=== PATIENT | female | born 1990 | race African-American/Black ===

== ENCOUNTER 2016-09-21 10:58 | Emergency (ER) | payer OTHER ==
[~2016-09-21] VITALS: Ht 170.2 cm; Wt 77.0 kg
[~2016-09-21 10:58] MED LIST: ADVAIR HFA120 INHAL2 IH; AMBIEN PO; AMBIEN5 MG PO; AMOXICILLIN500 MG PO; ATROVENT 0.06%15 ML BOTH NARES; AUGMENTIN875 MG PO; CIPROFLOXACIN H10 ML LEFT EYE; COLACE100 MG PO; DEPO-PROVER150 MG/ML IM; FLAGYL500 MG PO; FLINTSTONES WIT18 MG PO; Feosol PO; GUMMIES CHILDR1 EACH PO; HEMOCYTE324 MG PO; IBUPROFEN800 MG PO; KEFLEX500 MG PO; MOBIC7.5 MG PO; MOTRIN800 MG PO; Motrin PO; NAPROSYN500 MG PO; NAPROXEN500 MG PO; NO MEDS; NOHOMEMEDS; NORCO 5/3251 TABLET PO; PERCOCET 5/31 TABLET PO; PRENATAL VITAM1 EAC3 PO; PROAIR HFA8.5 GM IH; PROMETHAZINE HC25 M1 PO; PROVENTIL,200 INHALA IH; TYLENOL WITH C1 EACH PO; Tylenol Regular Stre PO; ULTRAM50 MG PO; ZOFRAN ODT4 MG PO; no med; ~No Medications
[2016-09-21 11:02] VITALS: BP 132/92
[2016-09-21] MEDS ORDERED: ULTRAM50 MG PO (12:01)
[2016-09-21] MEDS ORDERED: TRAMADOL HCL E100 M1 PO (13:37)
[2016-09-21] MEDS ORDERED: NAPROSYN500 MG PO (13:37)
[2016-09-21] MEDS ORDERED: FLEXERIL10 MG PO (13:37)
== END 2016-09-21 13:45 | disposition home or self-care (01) ==
LOC: EME 10:58
DX: S86.912A Strain of unspecified muscle(s) and tendon(s) at lower leg level, left leg, initial encounter (principal); M17.12 Unilateral primary osteoarthritis, left knee; Z91.040 Latex allergy status; Z88.6 Allergy status to analgesic agent
CPT/HCPCS: 73564; 99281; 99284; J1885

== ENCOUNTER 2016-12-21 08:52 | Emergency (ER) | payer OTHER ==
[~2016-12-21] VITALS: Ht 170.2 cm; Wt 76.6 kg
[~2016-12-21 08:52] MED LIST changes: +FLEXERIL10 MG PO; +TRAMADOL HCL E100 M1 PO
[2016-12-21 09:46] LABS: ADD MIUA? YES; BILIRUBIN NEGATIVE; BLOOD NEGATIVE; COLOR YELLOW ((YELLOW)); GLUCOSE (STRIP) NEGATIVE; KETONES NEGATIVE; LEUKOCYTES TRACE; NITRITE NEGATIVE; PROTEIN (STRIP) 30; SPECIFIC GRAVITY 1.024 (1.000-1.030); UROBILINOGEN 0.2 MG/DL (0.2-1.0)
[2016-12-21 10:10] LABS: CHLORIDE 108 mEq/L (99-109); EOSINOPHIL (%) 5.2 % (0-5); EOSINOPHIL COUNT 0.2 K/uL (0-0.3); HEMATOCRIT 35.3 % (36.0-46.0); INSTRUMENT ABS NEUTROPHIL CT 1.3 K/uL; LYMPHOCYTE COUNT 1.6 K/uL (1.0-2.8); MCH 23.3 PG (29.0-34.0); MCV 68.7 FL (83-99); MEAN PLAT.VOLUME 11.8 uM^3 (9.5-12.4); MONOCYTE (%) 8.1 % (3-12); MONOCYTE COUNT 0.3 K/uL (0-0.8); NEUTROPHIL (%) 38.7 % (45-76); NEUTROPHIL COUNT 1.3 K/uL (1.8-6.4); PLATELET COUNT 262 K/uL (156-360); POTASSIUM 3.6 mEq/L (3.7-5.4); RBC DIS.WIDTH-CV 12.7 % (11.8-14.6); RBC DIS.WIDTH-SD 30.7 % (39-53); RED BLOOD COUNT 5.14 M/uL (3.80-5.20); SODIUM 142 mEq/L (136-147); WHITE BLOOD COUNT 3.5 K/uL (4.1-10.2)
[2016-12-21 10:11] LABS: GLUCOSE 90 mg/dL (70-99)
[2016-12-21 10:13] LABS: ANION GAP 7 MEQ/L (2-14)
[2016-12-21 10:14] LABS: BACTERIA RARE /HPF; EPITHELIAL CELLS 1+ /HPF; MUCUS 1+ /LPF; RED BLOOD CELLS 0-5 /HPF (0-5); UCUL ADDED? NO; WHITE BLOOD CELLS 0-5 /HPF (0-5)
[2016-12-21 10:15] LABS: GFR ESTIMATE (CALCULATED) > 59 mL/min/
[2016-12-21 10:16] LABS: UREA NITROGEN (BUN) 12 mg/dL (9-23)
[2016-12-21] MEDS ORDERED: CIPRO500 MG PO (10:59)
[2016-12-21 11:04] LABS: QUANTITATIVE HCG < 4.0 MIU/ML
[2016-12-21 11:21] VITALS: BP 120/84
== END 2016-12-21 11:22 | disposition home or self-care (01) ==
LOC: EME 08:52
PROVIDERS: Emergency Medicine
DX: N30.00 Acute cystitis without hematuria (principal)
CPT/HCPCS: 76856; 80048; 81003; 84702; 85025; 99281; 99284; J2270; J2405; J7030

== ENCOUNTER 2018-02-01 07:11 | Emergency (ER) | payer OTHER ==
[~2018-02-01] VITALS: Ht 170.2 cm; Wt 70.7 kg
[~2018-02-01 07:11] MED LIST changes: +CIPRO500 MG PO
[2018-02-01] MEDS ORDERED: PEN-VEE K,VEET500 MG PO (07:27)
[2018-02-01 07:36] VITALS: BP 136/101
== END 2018-02-01 07:38 | disposition home or self-care (01) ==
LOC: EME 07:11
DX: L03.818 Cellulitis of other sites (principal); M32.9 Systemic lupus erythematosus, unspecified; M06.9 Rheumatoid arthritis, unspecified; Z88.5 Allergy status to narcotic agent; Z88.6 Allergy status to analgesic agent; Z88.1 Allergy status to other antibiotic agents; Z91.040 Latex allergy status
CPT/HCPCS: 99281; 99283